=== PATIENT | female | born 1975 | race Caucasian/White ===

== ENCOUNTER 2017-03-14 07:23 | Emergency (ER) | payer OTHER ==
[2017-03-14] MEDS ORDERED: Ketorolac Tromethamine 30 MG/ML VIAL ONE (07:32)
[2017-03-14 07:53] LABS: #Basophils 0.1 thou/uL (0.0-0.2); #Eosinphils 0.2 thou/uL (0.0-0.7); #Lymphocytes 1.7 thou/uL (1.20-3.40); #Monocytes 0.5 thou/uL (0.11-0.59); %Basophils 1.2 % (0.0-1.0); %Eosinophils 2.4 % (0.0-10.0); %Lymphocytes 26.7 % (21.0-51.0); %Monocytes 7.6 % (0.0-10.0); %Neutrophils 62.1 % (42.0-75.0); Hemoglobin 14.4 g/dL (12.0-16.0); Mean Corpuscular HGB CONC 34.3 g/dL (32.0-36.0); Mean Corpuscular Volume 90.2 fl (81.0-99.0); Mean Platelet Volume 8.5 fL (7.4-10.4); Platelet Count 253 thou/uL (130-400); RBC Distribution Width 12.5 % (11.5-14.5); Red Blood Cell (RBC) Count 4.65 mill/uL (4.20-5.40); White Blood Cell (WBC) Count 6.5 thou/uL (4.8-10.8)
[2017-03-14 08:00] LABS: Bilirubin Negative (Negative); Blood, Urine Small (Negative); Clarity Clear (Clear); Glucose, Urine (Dipstick) Negative (Negative); Leukocyte Small (Negative); Nitrite Negative (Negative); Protein, Urine (Dipstick) Negative (Neg-Trace); Urobilinogen 0.2 mg/dL (0.2-1.0)
[2017-03-14 08:04] LABS: ALT (SGPT) 16 U/L (8-55); AST (SGOT) 16 U/L (5-34); Albumin 4.2 g/dL (3.5-5.0); Alkaline Phosphatase 84 U/L (40-150); Anion Gap 16 mmol/L (10-20); BUN (Urea Nitrogen) 11 mg/dL (7.0-18.7); Bilirubin, Total 0.4 mg/dL (0.2-1.2); Calc. Creatinine Clearance 0 mL/min (70-130); Calcium 9.8 mg/dL (7.8-10.44); Carbon Dioxide 22 mmol/L (22-29); Chloride 107 mmol/L (98-107); Estimated GFR-MDRD 79; Glucose 98 mg/dL (70-105); Potassium 4.1 mmol/L (3.5-5.1); Protein, Total 7.2 g/dL (6.0-8.3); Sodium 141 mmol/L (136-145)
[2017-03-14 08:13] LABS: Bacteria/HPF Rare-Few HPF (None Seen); Crystals/HPF 1+ AMORPH URATES HPF (Negative); RBC/HPF 0-3 HPF (0-3)
[2017-03-14 08:15] LABS: BHCG - Serum Negative (NEGATIVE); Pregs Control Background? CLEAR/WHITE (CLR/WHITE); Pregs Control Bar Appear? YES (CONTROL BAR)
[2017-03-14] MEDS ORDERED: Fentanyl 100 MCG/2 ML VIAL ONE (08:15)
--- NOTE | 2017-03-14 17:33 | CT ---
CT ABDOMEN AND PELVIS WITHOUT CONTRAST 03/14/[address] of the abdomen and pelvis was performed for evaluation of lower abdominal and back pain. A xial slices were acquired, then coronal and sagittal reconstructions were done. The lung bases are clear. The liver was unremarkable in size and appearance. There is a small nondes cript 1.3 cm lucent area along the inferior tip of the spleen. This could be a small splenic cyst. U ltrasound would be confirmatory. The pancreas and adrenal glands were unremarkable. There has been a prior cholecystectomy. The aorta is normal in size. No renal mass, hydronephrosis or calculi could be appreciated. No ureteral calculi or dilation were seen. The bowel is nondistended. There are no inflammatory changes around bowel. No free air or free fluid was seen. CT of the pelvis showed a 1.8 cm lucency in the left adnexa that is probably either a small ovarian cyst or dominant follicle. There is no free fluid or inflammatory change. IMPRESSION: 1. Probable small left ovarian cyst or dominant follicle. 2. Possible small splenic cyst. See above. 3. No findings in the lumbar spine to explain significant back pain. POS: HOME
== END 2017-03-14 09:12 | disposition home or self-care (01) ==
LOC: BURERS 07:23
DX: M54.5 Low back pain (principal); Z79.899 Other long term (current) drug therapy
CPT/HCPCS: 74176; 80053; 81003; 81015; 84703; 85025; 96374; 96375; J1885; J3010